=== PATIENT | female | born 1940 | race Caucasian/White ===

== ENCOUNTER → 2021-04-02 16:50 | Outpatient (CLI) | payer MEDICARE, SELFPAY ==
--- NOTE | ~2021-04-02 | XR_ITS ---
EXAMINATION: XR abdomen obstructive series DATE: 04/02/2021 19:01 INDICATION: Abdominal pain TECHNIQUE: Upright and supine views of the abdomen were obtained. COMPARISON: None. FINDINGS: There is no free intraperitoneal gas or evidence of bowel obstruction. The bowel gas patter n is normal. Cholecystectomy clips are noted in the right upper quadrant. There are partially imaged changes of coronary artery bypass grafting. There is mild osteoarthritis of the hips. Moderate lumbar spondylosis is noted. IMPRESSION: 1. Nonobstructive bowel gas pattern. Reviewed, dictated and finalized at location A.
== END ==
PROVIDERS: PCP Family Medicine; Visit Provider Family Medicine
DX: R10.9 Unspecified abdominal pain (principal)
CPT/HCPCS: 74019

== ENCOUNTER → 2021-04-08 09:12 | Outpatient (CLI) | payer MEDICARE, SELFPAY ==
--- NOTE | ~2021-04-08 | CT_ITS ---
EXAMINATION: CT abdomen pelvis wo con DATE: 04/08/2021 09:29 INDICATION: Chronic diarrhea and nausea TECHNIQUE: Computed tomography (CT) of the abdomen and pelvis was performed without intravenous contr ast. The dose-length product (DLP) was 888.74 mGy-cm. Automated exposure control and iterative recons truction technique were employed. COMPARISON: 05/13/2017 FINDINGS: Minimal dependent atelectasis is present in the lung bases. The heart size is normal. A chr onic 3 mm nodule left lower lobe is consistent with old granulomatous disease. There is a small slidi ng hiatal hernia. Wire sternal sutures are consistent with prior cardiac surgery. The gallbladder is surgically absent. There is mild enlargement of the common bile duct and central intrahepatic ducts w hich is likely due to post cholecystectomy state. The liver, spleen, pancreas, and adrenal glands are normal. There is mild atrophy of the kidneys. There is a 1.9 cm simple cyst of the right kidney uppe r pole and a 1.0 cm hemorrhagic cyst of the left mid kidney. There is calcified atherosclerosis of th e aorta and many of the other arteries. No pathologically enlarged abdominal or pelvic lymph nodes ar e identified. Colonic diverticulosis is present without evidence of diverticulitis. The appendix is n ormal. There is moderate lumbar spondylosis. IMPRESSION: 1. No CT correlate for the patient's symptoms. Reviewed, dictated and finalized at location A.
== END ==
PROVIDERS: PCP Family Medicine; Visit Provider Family Medicine
DX: R10.9 Unspecified abdominal pain (principal)
CPT/HCPCS: 74176

== ENCOUNTER 2024-11-06 17:59 | Emergency (ER) | payer MEDICARE, SELFPAY ==
--- NOTE | ~2024-11-06 | XR_ITS ---
HISTORY: fall COMPARISON: None TECHNIQUE: 3 views of the left wrist were performed. FINDINGS: No acute fracture is identified. The carpal arcs are intact. Mild radiocarpal joint space narrowing with sclerosis of the distal radius is present. Degenerative disease is redemonstrated at the first carpometacarpal joint space. Evidence of prior fracture deformity is suspected within the fifth metacarpal. Bone mineralization is unremarkable. Moderate soft tissue swelling is noted. An oval shaped osseous density is identified within the radial ulna joint space measuring 2.3 mm with out a discrete donor site identified. This focus on lateral view is 13 mm anterior to the joint space, and approximately 13 mm deep to the skin IMPRESSION: 2 mm osseous density, as detailed above, without a donor site identified for which clinical correlati on is needed. Degenerative disease without acute fracture. Reviewed, dictated and finalized at location A. NICAL WRITING LEAD/MGR IMPRESSION: 2 mm osseous density, as detailed above, without a donor site identified for wh ich clinical correlation is needed. Degenerative disease without acute fracture.
--- NOTE | ~2024-11-06 | CT_ITS ---
History: Blunt head trauma. No loss of consciousness PROCEDURE: CT head without contrast. COMPARISON: None TECHNIQUE: Axial imaging of the head performed from the skull base to the vertex without IV contrast. Sagittal a nd coronal reformations obtained. DLP: 681 mGy-cm FINDINGS: The ventricles are dilated, with sulcal prominence. The dilatation of the ventricles is proportional to the degree of sulcal prominence, not uncommon in the senescent brain. There is no mass, mass effect or midline shift. There is no abnormal extra-axial fluid collection or intracranial hemorrhage. Visualized paranasal sinuses are clear. The mastoid air cells are well aerated. No acute displaced fractures within the overlying cranium. Impression: No acute intracranial hemorrhage or suspicious mass effect. Reviewed, dictated and finalized at location A. A LOGIST Impression: No acute intracranial hemorrhage or suspicious mass effect.
--- NOTE | ~2024-11-06 | XR_ITS ---
HISTORY: fell, BRUISING TO PALM OF HAND COMPARISON: None TECHNIQUE: 3 views of the left hand were performed. FINDINGS: No acute fracture is identified. The joint spaces are narrowed. The carpal arcs are intact. Mild radiocarpal joint space narrowing with sclerosis of the distal radius is present. Degenerative disease is noted at the first carpometacarpal joint space with joint space narrowing, sc lerosis and osteophyte formation. Bone mineralization is unremarkable. Moderate soft tissue swelling. No radiopaque foreign body is identified. IMPRESSION: No acute fracture or dislocation within the left hand, as detailed above. Reviewed, dictated and finalized at location A. DRY AID
[2024-11-06 18:18] VITALS: BP 177/102; PULSE 79; RESP 16; TEMP 36.6; O2SAT 95
--- NOTE | 2024-11-06 20:35 | ED.FALL ---
HPI - Fall General Chief Complaint: Fall Stated Complaint: fell hit head Time Seen by Provider: 11/06/24 20:05 History of Present Illness HPI Narrative: 84-year-old female presents to the ED after falling and hitting her head. Patient states she was standing at the kitchen sink, took a step back, lost her balance and fell to the ground. She hit her head on a life insurance agent a and obtained a laceration to the back of her head. She did not lose consciousness. She is not anticoagulated. She states she tried to catch herself with her left hand/wrist is having some bruising and pain there with movement of her thumb. Tdap is up-to-date. Denies neck pain, back pain or other injuries acquired. Related Data Allergies Allergy/AdvReac Type Severity Reaction Status Date / Time codeine Allergy Intermediate Unknown Verified 11/06/24 18:00 losartan Allergy Intermediate Unknown Verified 11/06/24 18:00 adhesive Allergy Unknown Unknown Verified 11/06/24 18:00 Sulfa (Sulfonamide Allergy Unknown Unknown Verified 11/06/24 18:00 Antibiotics) Sulfonamides Allergy Intermediate Unknown Uncoded 11/06/24 18:00 Review of Systems Review of Systems: All systems reviewed & are unremarkable except as noted in HPI and below PMFSH Social History Social History Smoking status: Former smoker Alcohol intake: never Exam Narrative: GENERAL: Well-appearing, well-nourished, and in no acute distress. HEAD: 3 cm linear laceration to the left posterior scalp with active wheezing. No deep structures or foreign bodies visualized. Surrounding hematoma no scalp crepitus or deformity EYES: PERRLA and EOMI. ENT: Nares clear, no rhinorrhea or epistaxis. Mucous membranes moist. NECK: No midline cervical spinous tenderness, step-offs or deformities BACK: No midline thoracolumbar spinous tenderness, crepitus, step-offs or deformities CHEST: Clear to auscultation. No respiratory distress. HEART: Regular rate and rhythm. No murmur heard. Normal peripheral pulses. EXTREMITIES: LUE: Ecchymosis over the thenar eminence and dorsum of the left hand with minimal tenderness to these regions. No obvious deformities. No tenderness remainder of extremity. No snuffbox tenderness. Full active range of motion of wrist and digits. Cap refill less than 2. Radial pulse 2 +. Sensation intact throughout. Radial, median and ulnar nerves are intact. SKIN: Warm, dry, no rash. NEURO: No focal deficits. Alert and oriented x3 Course Vital Signs Vital signs: Vital Signs Temperature 97.9 F 11/06/24 18:18 Pulse Rate 79 11/06/24 18:18 Respiratory Rate 16 11/06/24 18:18 Blood Pressure 177/102 H 11/06/24 18:18 Pulse Oximetry 95 11/06/24 18:18 Temperature 97.9 F 11/06/24 18:18 Pulse Rate 79 11/06/24 18:18 Respiratory Rate 16 11/06/24 18:18 Blood Pressure 177/102 H 11/06/24 18:18 Pulse Oximetry 95 11/06/24 18:18 Procedures Laceration Laceration 1: Date: 11/06/24 Time: 20:38 Site: scalp Size (cm): 3 Description: linear Depth: simple, single layer Pre-repair: wound explored, irrigated and irrigated extensively ====== Skin Level ====== Skin layer closed with: nisreen Number of sutures: 5 Technique: simple, interrupted ====== Subcutaneous Layer ====== ====== Muscle Layer ====== ====== Tendon Layer ====== MDM - Fall MDM Narrative Medical decision making narrative: 84-year-old female presents emergency department for a ground level fall with the head injury, no LOC. She is not anticoagulated. Vitals with a blood blood pressure, otherwise unremarkable. Patient is well-appearing on exam but does have a 3 cm laceration to posterior scalp that is actively bleeding. This laceration was cleansed with normal saline and closed with 5 sutures with successful hemostasis. Exam of the left hand/wrist is significant for the above. CT of the brain shows no acute intracranial hemorrhage or suspicious mass effect. X-ray of the hand shows no acute fracture or dislocation. X-ray of the wrist shows a 2 mm osseous density without a donor site identified. Patient has no tenderness to this region, suspect this is chronic. She was updated on workup. Advised staple removal in 7 days discussed return precautions. She and her family are agreeable with the plan verbalized understanding. Discharged in stable condition. Discharge Plan Discharge Clinical Impression: Laceration of scalp Qualifiers: Encounter type: initial encounter Qualified Code(s): S01.01XA - Laceration without foreign body of scalp, initial encounter Contusion of hand, left Qualifiers: Encounter type: initial encounter Qualified Code(s): S60.222A - Contusion of left hand, initial encounter Head injury Qualifiers: Encounter type: initial encounter Qualified Code(s): S09.90XA - Unspecified injury of head, initial encounter Patient Disposition: Home, Self-Care Condition: Stable Instructions: Antibiotic Form, Laceration (ED), Head Injury (ED), Staple Care (ED) Additional Instructions: Your evaluated in the emergency department for head injury. Your 5 nisreen placed. Please get these removed in [address] of your head shows no acute findings. Follow-up with her primary care provider. Return to the emergency department if you develop new or worsening symptoms. Patient Language: [place] Follow-up/Referrals: Ayan,Annetta Pang MD [Primary Care Provider] -
[2024-11-06 22:46] VITALS: BP 165/90; PULSE 81; RESP 14; TEMP 36.7; O2SAT 99
== END 2024-11-06 22:47 | disposition home or self-care (01) ==
PROVIDERS: Emergency Provider Physician Assistant; PCP Family Medicine
DX: S01.01XA Laceration without foreign body of scalp, initial encounter (principal); S60.222A Contusion of left hand, initial encounter; Z87.891 Personal history of nicotine dependence; M18.9 Osteoarthritis of first carpometacarpal joint, unspecified; W01.198A Fall on same level from slipping, tripping and stumbling with subsequent striking against other object, initial encounter
CPT/HCPCS: 12002; 70450; 73110; 73130; 99284